=== PATIENT | female | born 1990 | race Caucasian/White ===

== ENCOUNTER 2018-03-13 16:18 | Outpatient (CLI) | payer OTHER | END 2018-03-13 16:25 | disposition home or self-care (01) | LOC: LAB 16:18 | DX: J11.1 Influenza due to unidentified influenza virus with other respiratory manifestations (principal); J06.9 Acute upper respiratory infection, unspecified ==

== ENCOUNTER → 2018-11-17 11:57 | Outpatient (CLI) | payer OTHER | END | disposition home or self-care (01) | LOC: LAB 11:57 | DX: R05 Cough (principal); J11.1 Influenza due to unidentified influenza virus with other respiratory manifestations ==

== ENCOUNTER → 2019-01-29 | Emergency (ER) | payer OTHER ==
[~2019-01-29] VITALS: Ht 154.9 cm; Wt 105.7 kg
== END | disposition left against medical advice (07) ==
LOC: ER 21:40
DX: Z53.20 Procedure and treatment not carried out because of patient's decision for unspecified reasons (principal)